=== PATIENT | male | born 1965 | race Caucasian/White ===

== ENCOUNTER 2017-03-03 13:18 | Emergency (ER) | payer BC, OTHER ==
[~2017-03-03] VITALS: Ht 177.8 cm; Wt 123.4 kg
[~2017-03-03 13:18] MED LIST: REVIEWED
[2017-03-03 13:44] VITALS: TEMP 37; Ht 177.8 cm; Wt 123.4 kg
[2017-03-03] MEDS ORDERED: KETOROLAC TROMETHAMINE 30 MG/ML VIAL IV STA (15:24)
[2017-03-03 16:02] LABS: BUN/CREATININE RATIO 13.6 (10-20); CALCIUM 8.9 mg/dl (8.5-10.1); CREATININE 0.96 mg/dl (0.60-1.40); POTASSIUM 4.2 mmol/L (3.5-5.1)
[2017-03-03 16:03] LABS: C-REACTIVE PROTEIN 4.24 mg/dl (0-0.29)
[2017-03-03 16:05] LABS: BASO % 0.3 %; BASO ABS # 0.03 K/uL (0-0.2); COMPLETE YES; EOS % 0.2 %; HEMATOCRIT 49.5 % (42-52); IG% 0.3 %; LYMPH % 22.1 %; LYMPH ABS # 2.35 K/uL (1.2-3.4); MEAN CELL VOLUME 89.2 fL (80-100); MEAN CORPUSCULAR HEMOGLOBIN 30.6 pg (25-34); MEAN CORPUSCULAR HGB CONC 34.3 g/dl (32-36); MEAN PLATELET VOLUME 10.1 fL (7.4-10.4); MONO % 7.3 %; NEUT % 69.8 %; PLATELET COUNT 254 K/uL (130-400); RED BLOOD COUNT 5.55 M/uL (4.7-6.1); WHITE BLOOD COUNT 10.61 K/uL (4.8-10.8)
[2017-03-03 16:34] LABS: LYME DISEASE AB IGG NEG (NEG); LYME DISEASE AB IGM NEG (NEG)
[2017-03-03] MEDS ORDERED: TRAM-10 PO (17:10)
[2017-03-03] MEDS ORDERED: TRAMADOL HCL 50 MG TAB PO STA (17:11)
[2017-03-03 17:22] VITALS: BP 151/108; PULSE 98; O2SAT 95
--- NOTE | 2017-03-04 01:23 | EMERGENCY ROOM VISIT NOTE ---
History First contact with patient: 15:04 Chief Complaint: RASH Stated Complaint: TICK REMOVED NOW HAS A RASH AND SORE BACK History of Present Illness The patient is a 51 year old male who presents to the Emergency Room with complaints of back pain and red rash. The patient reports that he noticed back discomfort yesterday morning. He does not recall doing anything that could've injured his back. The patient does do a lot of heavy lifting at work, but does not recall having any discomfort the day before. 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 The patient reports that the pain seems to be spreading up the back, although it is not increasing in intensity. At its worse, he rates his discomfort an 8 out of 10. He currently rates his pain a 6 out of 10. He has not noticed any pain radiating into the buttocks or down the legs. He also denies any neck pain or headache. The was concern for Lyme's disease as he had a tick removed from the right upper back this past Saturday at the [facility]. He was told to watch for red rash, and come to the emergency department if it does develop. The patient reports frequent tick bites. He denies any prior history of Lyme's disease. The patient denies using any new topical products, and has not consumed any new foods or drinks. He denies any pruritus or pain with palpation of the rash. Review of Systems HEENT: Denies dizziness, visual problems, hearing loss, tinnitus. Denies difficulty swallowing or oral lesions. PULMONARY: Denies cough, shortness of breath, sputum production or hemoptysis. CARDIOVASCULAR: Denies chest pain, palpitations, dyspnea on exertion, orthopnea or peripheral edema. GASTROINTESTINAL: Denies diarrhea, constipation, nausea, vomiting, or abdominal pain. GENITOURINARY: Denies dysuria, frequency, urgency or nocturia. NEUROLOGIC: Denies history of epilepsy, CVA, TIA or chronic headaches. MUSCULOSKELETAL: Denies history of joint tenderness/swelling. SKIN: Denies rashes or lesions. PSYCHIATRIC: Denies history of depression or mental illness. ENDOCRINE: Denies history of diabetes or thyroid disorders. Past Medical/Surgical History Medical Problems: (1) Anal & Rectal Abscess (2) Tobacco Use Disorder Surgical Problems: (1) History of appendectomy Family History FH: cancer FH: lung disease Social History Smoking Status: Never Smoker Smokeless Tobacco Use: Yes Alcohol Use: occasionally Marital Status: Occupation Status: employed Current/Historical Medications Scheduled PRN Tramadol (Ultram), 1-2 TAB PO Q4H PRN for Pain Physical Exam Vital Signs Date Time Temp Pulse Resp B/P (MAP) Pulse Ox O2 Delivery O2 Flow Rate FiO2 03/03/17 17:22 98 16 151/108 95 03/03/17 16:49 85 14 152/101 95 Room Air 03/03/17 13:44 37.0 97 20 168/112 98 Room Air Physical Exam CONSTITUTIONAL: Obese male, alert and oriented X 3 with positive affect. Patient does not appear in any acute distress, nor does he appear acutely ill or toxic. HEENT: Normocephalic, atraumatic. Pupils equal, round and reactive. No scleral icterus or conjunctival injection/pallor. Ears and nares are clear. OROPHARYNX: No posterior pharyngeal erythema, tonsillar hypertrophy or exudates. NECK: Full active range of motion without discomfort. No nuchal rigidity. Negative Kernig's, negative Brudzinski sign. No JVD or carotid bruits. RESPIRATORY: Clear to auscultation bilaterally with no wheezing, crackles, rhonchi or stridor. CARDIOVASCULAR: Regular rate and rhythm with no murmurs, rubs or gallops. GASTROINTESTINAL: Bowel sounds present in all quadrants. Soft and nontender to palpation. MUSCULOSKELETAL: Examination shows mild generalized tenderness to palpation through the thoracic and upper lumbar paraspinous muscles. No rigidity noted. No tenderness to palpation through the ribs. No focal tenderness through the SI joints. Range of motion of the shoulders does not worsen his discomfort. Distal pulses are intact. Equal para machine operator strength bilaterally, and equal ankle plantar/dorsiflexion strength of 5 out of 5. INTEGUMENTARY: Examination of the back shows a generalized mildly elevated an erythematous rash that is continuous without any pustules, vesicles, desquamation or induration. There is no central clearing, umbilication or other concerning appearance. The rash does josh with pressure. He has no other rash on the anterior torso or extremities. Examination of the right posterior lateral shoulder/chest wall shows an area where the patient's previous tick was removed. There is no venous baraajs, surrounding erythematous clearing or tenderness to palpation. Small papule is noted at the site of the bite without pustule, vesicle or open wound. NEUROLOGIC: No focal neurologic deficits noted. Medical Decision & Procedures Laboratory Results 03/03/17 15:30 Red Blood Count 5.55, Mean Corpuscular Volume 89.2, Mean Corpuscular Hemoglobin 30.6, Mean Corpuscular Hemoglobin Concent 34.3, Mean Platelet Volume 10.1, Neutrophils (%) (Auto) 69.8, Lymphocytes (%) (Auto) 22.1, Monocytes (%) (Auto) 7.3, Eosinophils (%) (Auto) 0.2, Basophils (%) (Auto) 0.3, Neutrophils # (Auto) 7.41, Lymphocytes # (Auto) 2.35, Monocytes # (Auto) 0.77, Eosinophils # (Auto) 0.02, Basophils # (Auto) 0.03 03/03/17 15:30 Test 03/03/17 15:30 White Blood Count 10.61 K/uL (4.8-10.8) Red Blood Count 5.55 M/uL (4.7-6.1) Hemoglobin 17.0 g/dL (14.0-18.0) Hematocrit 49.5 % (42-52) Mean Corpuscular Volume 89.2 fL (80-100) Mean Corpuscular Hemoglobin 30.6 pg (25-34) Mean Corpuscular Hemoglobin Concent 34.3 g/dl (32-36) Platelet Count 254 K/uL (130-400) Mean Platelet Volume 10.1 fL (7.4-10.4) Neutrophils (%) (Auto) 69.8 % Lymphocytes (%) (Auto) 22.1 % Monocytes (%) (Auto) 7.3 % Eosinophils (%) (Auto) 0.2 % Basophils (%) (Auto) 0.3 % Neutrophils # (Auto) 7.41 K/uL (1.4-6.5) Lymphocytes # (Auto) 2.35 K/uL (1.2-3.4) Monocytes # (Auto) 0.77 K/uL (0.11-0.59) Eosinophils # (Auto) 0.02 K/uL (0-0.5) Basophils # (Auto) 0.03 K/uL (0-0.2) RDW Standard Deviation 39.6 fL (36.4-46.3) RDW Coefficient of Variation 12.2 % (11.5-14.5) Immature Granulocyte % (Auto) 0.3 % Immature Granulocyte # (Auto) 0.03 K/uL (0.00-0.02) Erythrocyte Sedimentation Rate 19 mm/hr (0-14) Anion Gap 6.0 mmol/L (3-11) Est Creatinine Clear Calc Drug Dose 120.0 ml/min Estimated GFR () 105.6 Estimated GFR (Non- 91.2 BUN/Creatinine Ratio 13.6 (10-20) Calcium Level 8.9 mg/dl (8.5-10.1) C-Reactive Protein 4.24 mg/dl (0-0.29) Lyme Disease IgG Antibody NEG (NEG) Lyme Disease IgM Antibody NEG (NEG) The above labs were reviewed. I'm screen is negative. CRP and sedimentation rate are all elevated with a normal white count and partial renal profile. Medications Administered Medications (Trade) Dose Ordered Sig/Delma Route Start Time Stop Time Status Last Admin Dose Admin Ketorolac Tromethamine (Toradol Inj) 30 mg NOW STAT IV 03/03/17 15:24 03/03/17 15:25 DC 03/03/17 15:24 30 MG Tramadol HCl (Ultram Tab) 50 mg ONE STAT PO 03/03/17 17:11 03/03/17 17:12 DC 03/03/17 17:19 50 MG ED Course Patient history and physical exam were performed. Nurse's notes were reviewed. Vital signs were reviewed, showing a blood pressure of 168/112. The patient is afebrile and not tachycardic. The patient does not appear in any acute distress. Education was provided regarding tick bites, erythema migrans and Lyme disease. I also explained that the rash does not have the typical appearance of erythema migrans, however because he has had frequent tick bites, I did offer to perform lab work. The patient was hesitant at first because he does not like needles, however the convinced him to do so. IV access was established, and labs were drawn. The patient was administered IV Toradol for discomfort. Review of labs showed no significant findings except for a mildly elevated sedimentation rate and CRP. White count and partial renal profile are otherwise normal. Lyme screen is negative. At this point, the patient was encouraged to watch for any progressively worsening swelling, redness, pain or fever. Otherwise he was encouraged to rest and avoid strenuous activities. The patient was administered Ultram 50 mg prior to discharge, and was provided a prescription for Ultram if needed for additional breakthrough pain. He was encouraged to alternate ibuprofen and Tylenol for baseline pain relief. I did encourage the patient to follow-up with his PCP within the next 2-3 days for recheck, returning to the emergency department for any progressively worsening symptoms. The patient was happy with plan of care, voiced understanding of all discharge instructions, and rated his discomfort a 6 out of 10 at the time of discharge. Repeat blood pressure at the time of discharge was 151/108. I did suggest that the patient follow up with his PCP for blood pressure recheck. Medical Decision Patient presents with primary complaint of back pain along with a developing erythematous rash. The rash is confluent, erythematous and raised. Lab screen was negative, therefore I do not suspect erythema migrans. Cellulitis is certainly possible, however there does not appear to be any evidence for skin irritation or injury. The patient is afebrile and has no significant leukocytosis. Exact etiology for this rash is uncertain at this time, but will likely be self limiting. The patient does do a lot of heavy labor at work, and history is most consistent with thoracolumbar myofascial strain. Medication Reconcilliation Current Medication List: was personally reviewed by me Blood Pressure Screening Patient's blood pressure: Elevated blood pressure Blood pressure disposition: Referred to PCP Impression Primary Impression: Back pain Additional Impressions: Rash of back Elevated blood pressure reading Departure Information Prescriptions Tramadol (Ultram) 50 Mg Tab 1-2 TAB PO Q4H Y for Pain, #15 TAB For Initial Treatment Prov: Raul Avelar PA 03/03/17 Referrals No Doctor, Assigned (PCP) Patient Instructions My [facility] Problem Qualifiers Primary Impression: Back pain Back pain location: back pain in other location Chronicity: acute Qualified Codes: M54.9 - Dorsalgia, unspecified
== END 2017-03-03 17:23 | disposition home or self-care (01) ==
LOC: C.EDB 13:19 → C.EDA 17:23
DX: M54.9 Dorsalgia, unspecified (principal); R21 Rash and other nonspecific skin eruption; R03.0 Elevated blood-pressure reading, without diagnosis of hypertension; F17.220 Nicotine dependence, chewing tobacco, uncomplicated; E66.9 Obesity, unspecified